=== PATIENT | female | born 1965 | race African-American/Black ===

== ENCOUNTER → 2016-12-05 | Outpatient (CLI) | payer OTHER ==
[~2016-12-05] MED LIST: ASPIR 8181 MG PO; D-20002000 UNIT PO; FISH OIL 1,001000 M2 PO; LIPITOR 20 MG T20 M1 PO; METFORMIN HCL500 MG PO; NITROSTAT0.4 M1 SL; NORVASC2.5 MG PO
--- NOTE | ~2016-12-05 | EKG ---
[place] [address] [facility] [place] [address] ELECTROCARDIOGRAM REPORT Name: BLANKENSHIPJEANNINE [id number] Admission: 12/05/16 Attend Phys: Natalie Gomez, Discharge: Date of : 63 Report #: [id number] THIS REPORT FOR: //name// [facility] Test Date: 2016-12-05 Test Time: 12:23:17 Pat Name: JEANNINE BLANKENSHIP Department: Room: Gender: F Sliding Joint Maker: Lisa HERRING : 1965 Requested By: Natalie Gomez Order Number: [id number] MD: sOmin Fraser Measurements Intervals [place] Rate: 79 P: 51 WV: 245 QRS: 19 QRSD: 86 T: 50 QT: 378 QTc: 434 Interpretive Statements Sinus rhythm Prolonged WV interval Consider left atrial enlargement Consider left ventricular hypertrophy Compared to ECG 05/27/2016 06:33:03 No significant changes Electronically Signed On 12-05-2016 14:16:36 CASHIER HOST/HOSTESS by Osmin Fraser [email or web address] <ELECTRONICALLY SIGNED> By: Osmin Fraser MD 12/05/16 1416 1223 1223 Osmin Fraser MD /DANII
== END ==
LOC: ULTRA 12:04 → CV 12:04
DX: Z01.818 Encounter for other preprocedural examination (principal)

== ENCOUNTER 2019-01-24 06:09 | Inpatient (IN) | payer OTHER ==
[~2019-01-24] VITALS: Ht 154.9 cm; Wt 73.0 kg
[~2019-01-24 06:09] MED LIST changes: +ATORVASTATIN CA40 MG PO; +LASIX 40 MG TAB40 M2 PO; +METFORMIN HCL500 M2 PO; +TOPROL XL25 MG PO; +VITAMIN D31000 UNI2 PO
[2019-01-24 09:22] LABS: ABSOLUTE NEUTROPHILS 3.2 thou/uL (1.4-8.2); EOSINOPHILS 0.7 % (0.0-3.0); HEMATOCRIT 40.2 % (37.0-47.0); HEMOGLOBIN 13.9 gm/dL (12.0-15.0); MCH 32.5 pg (26.0-34.0); MCHC 34.5 g/dL (28.0-37.0); MCV 94.3 fL (80.0-100.0); MONOCYTES 5.8 % (1.0-8.0); PLATELET COUNT 243 thou/uL (150-400); POLYS 47.5 % (36.0-66.0); RBC 4.26 mil/uL (4.20-5.00); RDW 14.7 % (10.5-14.5); WBC 6.7 thou/uL (4.0-11.0)
[2019-01-24 09:30] LABS: URINE BILIRUBIN NEGATIVE (Negative); URINE BLOOD NEGATIVE (Negative); URINE CLARITY CLEAR; URINE COLOR YELLOW; URINE GLUCOSE-RANDOM* NEGATIVE (Negative); URINE KETONES NEGATIVE (Negative); URINE LEUKOCYTES-REFLEX NEGATIVE (Negative); URINE NITRITE-REFLEX NEGATIVE (Negative); URINE PROTEIN (DIPSTICK) NEGATIVE (Negative); URINE UROBILINOGEN 0.2 E.U./dl (0.2-1.0)
[2019-01-24 09:33] LABS: APTT 31.5 Seconds (24.5-32.8); PROTIME 10.1 Seconds (9.3-11.4)
[2019-01-24 09:40] LABS: ALBUMIN 3.6 g/dL (3.4-5.0); CALCIUM 8.9 mg/dL (8.5-10.1); CREATININE 0.8 mg/dL (0.6-1.0); POTASSIUM 4.5 mmol/L (3.5-5.1); TOTAL BILIRUBIN 0.6 mg/dL (<0.1-1.0); TOTAL PROTEIN 8.1 g/dL (6.4-8.2)
--- NOTE | 2019-01-24 14:26 | EKG ---
[address] [place] [address] ELECTROCARDIOGRAM REPORT Name: PATTIEJEANNINE ARPIT Room #: PRE IN ..#: [id number] ������������������ Admission: ������������������ Attend Phys: Filiberto Abdalla MD Discharge: ������������������ Date of : 63 Report #: [id number] ����������������������������������������������������������������� [id number] THIS REPORT FOR: //name// [facility] Test Date: 2019-01-24 Test Time: 09:14:50 Pat Name: JEANNINE BLANKENSHIP Department: Room: 150 6 Gender: F Casino Gaming Inspector: sussy crane : 1965 Requested By: Filiberto Abdalla Order Number: [id number] MD: Osmin Fraser Measurements Intervals [place] Rate: 89 P: 51 VT: 236 QRS: 3 QRSD: 74 T: 65 QT: 375 QTc: 457 Interpretive Statements Sinus rhythm Prolonged VT interval LVH by voltage Compared to ECG 12/05/2016 12:23:17 No significant changes Electronically Signed On 01-24-2019 14:26:05 CDT by Osmin Fraser [email or web address] ��������������������������������������������� <ELECTRONICALLY SIGNED> ���������������������������������������� By: Osmin Fraser MD ��������������������������������������������� 01/24/19 1426 3 3 Osmin Fraser MD /DANII
[2019-01-24 23:09] LABS: GLYCOHEMOGLOBIN (HGB A1C) 7.2 % (4.8-5.6)
[2019-02-08] VITALS (7 sets, daily range): BP systolic 104–138; BP diastolic 44–69
[2019-02-08 14:27] LABS: HEMATOCRIT 21.7 % (37.0-47.0); MCH 32.4 pg (26.0-34.0); MCV 95.2 fL (80.0-100.0); RBC 2.28 mil/uL (4.20-5.00); RDW 14.5 % (10.5-14.5); WBC 10.3 thou/uL (4.0-11.0)
[2019-02-08 14:31] LABS: HEMOGLOBIN 7.4 gm/dL (12.0-15.0)
[2019-02-08 14:41] LABS: APTT 32.1 Seconds (24.5-32.8); FIBRINOGEN 230.2 mg/dL (210-360); PROTIME 16.8 Seconds (9.3-11.4)
[2019-02-08 14:42] LABS: INR 1.6
[2019-02-08 15:24] LABS: POC BE -1 mmol/L (-2.0 to +3.0); POC CA IONIZED 4.9 mg/dL (4.5-5.3); POC GLUCOSE 185 mg/dL (70-99); POC HCO3 23.9 mmol/L (22.0-26.0); POC HEMOGLOBIN 12.2 g/dL (12.0-15.0); POC POTASSIUM 4.9 mmol/L (3.5-5.1); POC SODIUM 138 mmol/L (136-145); POC pCO2 40.2 mmHg (35.0-45.0); POC pH 7.382 (7.360-7.450)
[2019-02-08 15:24] LABS: POC BE 2 mmol/L (-2.0 to +3.0); POC CA IONIZED 4.2 mg/dL (4.5-5.3); POC GLUCOSE 185 mg/dL (70-99); POC HCO3 26.5 mmol/L (22.0-26.0); POC HEMOGLOBIN 8.2 g/dL (12.0-15.0); POC POTASSIUM 4.6 mmol/L (3.5-5.1); POC SODIUM 141 mmol/L (136-145); POC pH 7.388 (7.360-7.450)
[2019-02-08 15:24] LABS: POC BE 0 mmol/L (-2.0 to +3.0); POC CA IONIZED 4.3 mg/dL (4.5-5.3); POC GLUCOSE 163 mg/dL (70-99); POC HCO3 25.8 mmol/L (22.0-26.0); POC HEMOGLOBIN 7.5 g/dL (12.0-15.0); POC POTASSIUM 4.9 mmol/L (3.5-5.1); POC SODIUM 141 mmol/L (136-145); POC pCO2 46.2 mmHg (35.0-45.0); POC pH 7.354 (7.360-7.450)
[2019-02-08 15:24] LABS: POC BE 2 mmol/L (-2.0 to +3.0); POC CA IONIZED 4.2 mg/dL (4.5-5.3); POC GLUCOSE 184 mg/dL (70-99); POC HCO3 26.7 mmol/L (22.0-26.0); POC HEMOGLOBIN 8.5 g/dL (12.0-15.0); POC POTASSIUM 4.3 mmol/L (3.5-5.1); POC SODIUM 140 mmol/L (136-145); POC pCO2 42.4 mmHg (35.0-45.0); POC pH 7.406 (7.360-7.450)
--- NOTE | 2019-02-08 15:30 | NUR ---
pt recieved from surgery sedated and intubated. acc by Jaxon and Dr. Abdalla. Pt placed on the monitor and all hemodynamic parameters wnl. Pt has dobutamie and insulin and Propofol infusing. The pacemaker is on at . Vent paced at this time. Sternal dressing intact and bra present. Jourdan dressing. MCT to Atrium, draining well. bai to DD, clear urine. 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 Will cont to monitor.
[2019-02-08 15:39] LABS: POC BE 2 mmol/L (-2.0 to +3.0); POC CA IONIZED 4.2 mg/dL (4.5-5.3); POC GLUCOSE 174 mg/dL (70-99); POC HCO3 25.4 mmol/L (22.0-26.0); POC HEMOGLOBIN 8.2 g/dL (12.0-15.0); POC POTASSIUM 4.5 mmol/L (3.5-5.1); POC SODIUM 140 mmol/L (136-145); POC pCO2 32.5 mmHg (35.0-45.0); POC pH 7.501 (7.360-7.450)
[2019-02-08 15:39] LABS: POC BE -2 mmol/L (-2.0 to +3.0); POC CA IONIZED 4.4 mg/dL (4.5-5.3); POC GLUCOSE 155 mg/dL (70-99); POC HEMOGLOBIN 8.8 g/dL (12.0-15.0); POC POTASSIUM 4.7 mmol/L (3.5-5.1); POC SODIUM 137 mmol/L (136-145); POC pCO2 46.9 mmHg (35.0-45.0); POC pH 7.318 (7.360-7.450)
[2019-02-08 15:39] LABS: POC BE -1 mmol/L (-2.0 to +3.0); POC CA IONIZED 4.3 mg/dL (4.5-5.3); POC GLUCOSE 178 mg/dL (70-99); POC HEMOGLOBIN 8.2 g/dL (12.0-15.0); POC POTASSIUM 4.9 mmol/L (3.5-5.1); POC SODIUM 142 mmol/L (136-145); POC pCO2 47.6 mmHg (35.0-45.0); POC pH 7.328 (7.360-7.450)
[2019-02-08 15:39] LABS: POC BE 1 mmol/L (-2.0 to +3.0); POC CA IONIZED 4.4 mg/dL (4.5-5.3); POC GLUCOSE 179 mg/dL (70-99); POC HCO3 28.1 mmol/L (22.0-26.0); POC HEMOGLOBIN 8.5 g/dL (12.0-15.0); POC POTASSIUM 4.2 mmol/L (3.5-5.1); POC SODIUM 141 mmol/L (136-145); POC pH 7.271 (7.360-7.450)
[2019-02-08 15:39] LABS: POC BE -3 mmol/L (-2.0 to +3.0); POC CA IONIZED 4.8 mg/dL (4.5-5.3); POC GLUCOSE 133 mg/dL (70-99); POC HCO3 22.1 mmol/L (22.0-26.0); POC HEMOGLOBIN 7.8 g/dL (12.0-15.0); POC POTASSIUM 4.3 mmol/L (3.5-5.1); POC SODIUM 141 mmol/L (136-145); POC pCO2 38.6 mmHg (35.0-45.0); POC pH 7.367 (7.360-7.450)
[2019-02-08 15:39] LABS: POC BE -4 mmol/L (-2.0 to +3.0); POC CA IONIZED 4.8 mg/dL (4.5-5.3); POC GLUCOSE 171 mg/dL (70-99); POC HCO3 21.2 mmol/L (22.0-26.0); POC HEMOGLOBIN 11.9 g/dL (12.0-15.0); POC POTASSIUM 4.3 mmol/L (3.5-5.1); POC SODIUM 138 mmol/L (136-145); POC pCO2 38.1 mmHg (35.0-45.0); POC pH 7.353 (7.360-7.450)
[2019-02-08 15:39] LABS: POC BE -5 mmol/L (-2.0 to +3.0); POC CA IONIZED 4.4 mg/dL (4.5-5.3); POC GLUCOSE 152 mg/dL (70-99); POC HCO3 21.6 mmol/L (22.0-26.0); POC HEMOGLOBIN 8.8 g/dL (12.0-15.0); POC POTASSIUM 4.6 mmol/L (3.5-5.1); POC SODIUM 139 mmol/L (136-145); POC pCO2 47.6 mmHg (35.0-45.0); POC pH 7.265 (7.360-7.450)
[2019-02-08 16:09] LABS: HEMATOCRIT 31.8 % (37.0-47.0); MCHC 33.5 g/dL (28.0-37.0); MCV 95.4 fL (80.0-100.0); RBC 3.33 mil/uL (4.20-5.00); RDW 14.6 % (10.5-14.5); WBC 12.8 thou/uL (4.0-11.0)
[2019-02-08 16:10] LABS: HEMOGLOBIN 10.7 gm/dL (12.0-15.0)
[2019-02-08 16:12] LABS: CALCIUM 7.9 mg/dL (8.5-10.1); CREATININE 0.7 mg/dL (0.6-1.0); MAGNESIUM 2.2 mg/dL (1.8-2.4)
[2019-02-08 16:23] LABS: APTT 38.3 Seconds (24.5-32.8); INR 1.2; PROTIME 12.6 Seconds (9.3-11.4)
--- NOTE | 2019-02-08 16:30 | NUR ---
Pt waking up some, the propofol is being decreased, plan is to start weaning as soon as she wakes up. Dr. Abdalla here to see how pt's doing adjustment made as needed. will cont to monitor.
[2019-02-08 16:42] LABS: BE(vivo) -7.5 mmol/L (-2 to +3); HCO3 18.2 mmol/L (22.0-26.0); PCO2 37.4 mmHg (35.0-45.0); PO2 62.7 mmHg (80.0-100.0); sO2 90.1 % (92.0-98.0)
[2019-02-08 16:43] LABS: pH 7.305 (7.360-7.450)
[2019-02-08 17:23] LABS: CHOLESTEROL 61 mg/dL (<200); HDL CHOLESTEROL 27 mg/dL (>40); LDL CHOLESTEROL 12 mg/dL (<100); TC:HDL 2.3 Ratio (Not establshd); TRIGLYCERIDE 114 mg/dL (<150); VLDL 23 mg/dL (<40)
--- NOTE | 2019-02-08 18:00 | NUR ---
Pt awake and informed on what the procedure is to get that ett out. Rt here to start. Dr Abdalla here to see.
[2019-02-08 18:03] LABS: BE(vivo) -6.2 mmol/L (-2 to +3); HCO3 18.5 mmol/L (22.0-26.0); PCO2 33.8 mmHg (35.0-45.0); pH 7.357 (7.360-7.450); sO2 94.3 % (92.0-98.0)
[2019-02-08 20:25] LABS: BE(vivo) -4.2 mmol/L (-2 to +3); HCO3 20.7 mmol/L (22.0-26.0); PCO2 37.5 mmHg (35.0-45.0); PO2 62.6 mmHg (80.0-100.0); sO2 91.3 % (92.0-98.0)
[2019-02-08 21:48] LABS: BE(vivo) -5.2 mmol/L (-2 to +3); HCO3 19.4 mmol/L (22.0-26.0); PCO2 34.8 mmHg (35.0-45.0); PO2 82.2 mmHg (80.0-100.0); pH 7.365 (7.360-7.450); sO2 95.9 % (92.0-98.0)
[2019-02-09 06:07] LABS: HEMATOCRIT 30.7 % (37.0-47.0); HEMOGLOBIN 10.2 gm/dL (12.0-15.0); MCH 31.7 pg (26.0-34.0); MCHC 33.2 g/dL (28.0-37.0); MCV 95.6 fL (80.0-100.0); RBC 3.21 mil/uL (4.20-5.00); RDW 14.8 % (10.5-14.5); WBC 11.6 thou/uL (4.0-11.0)
[2019-02-09 06:11] LABS: GLYCOHEMOGLOBIN (HGB A1C) 7.2 % (4.8-5.6)
[2019-02-09 06:23] LABS: CALCIUM 8.3 mg/dL (8.5-10.1); CREATININE 0.6 mg/dL (0.6-1.0); MAGNESIUM 2.1 mg/dL (1.8-2.4); POTASSIUM 4.2 mmol/L (3.5-5.1)
--- NOTE | 2019-02-09 06:39 | NUR ---
Pt extubated last pm and progressing well. Up to the chair this am without difficulty. PRN fentanyl and hydrocodones given for c/o chest "soreness" with desired effects achieved. VS stable and SpO2 adequate on current FiO2. Chest tube drainage minimal and urine output adequate for the shift. Am lab results noted, continue with POC.
--- NOTE | 2019-02-09 08:09 | EKG ---
[place] [address] [facility] [place] [address] ELECTROCARDIOGRAM REPORT Name: JEANNINE BLANKENSHIP Room #: 242-P ADM IN M.R.#: [id number] ������������������ Admission: 02/08/19 ������������������ Attend Phys: Filiberto Abdalla MD Discharge: ������������������ Date of : 63 Report #: [id number] ����������������������������������������������������������������� [id number] THIS REPORT FOR: //name// [facility] Test Date: 2019-02-09 Test Time: 07:04:41 Pat Name: JEANNINE BLANKENSHIP Department: Room: 242 P Gender: F Financial Services Internship: ABHI : 1965 Requested By: Mario Caballero Order Number: [id number] MD: Raphael Elliott Measurements Intervals [place] Rate: 70 P: 54 [place]: 203 QRS: 36 QRSD: 86 T: 73 QT: 348 QTc: 376 Interpretive Statements Atrial-ventricular dual-paced rhythm No further analysis attempted due to paced rhythm Compared to ECG 01/24/2019 09:14:50 pacing is now present Electronically Signed On 02-09-2019 8:09:27 CDT by Raphael Elliott [email or web address] ��������������������������������������������� <ELECTRONICALLY SIGNED> ���������������������������������������� By: Raphael Elliott MD, [facility] ��������������������������������������������� 02/09/19 0809 3 3 Raphael Elliott MD, [facility] /EPI
[2019-02-09 08:59] LABS: POC BE -5 mmol/L (-2.0 to +3.0); POC GLUCOSE 170 mg/dL (70-99); POC HCO3 20.5 mmol/L (22.0-26.0); POC HEMOGLOBIN 10.5 g/dL (12.0-15.0); POC POTASSIUM 4.7 mmol/L (3.5-5.1); POC SODIUM 143 mmol/L (136-145); POC pCO2 37.9 mmHg (35.0-45.0); POC pH 7.342 (7.360-7.450)
--- NOTE | 2019-02-09 10:48 | NUR ---
CM ASSESSMENT: CASE OPENED FOR DC PLANNING. CLINICAL INFO REVIEWED. PT IS POD #1 AVR. MET WITH PT AND INTRODUCED TO ROLE OF CM. PT LIVES IN HOUSE WITH DTR. 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 PT DRIVES. PT IS MEDICALLY DISABLED AND DOES NOT WORK. PCP IS ADAM NOGUERA. PT WILL BEGIIN TO WORK WITH PT/OT TODAY AND WILL FOLLOW TO ASSIST WITH COORDINATION OF DC NEEDS. LIKELY OME NO NEEDS.
--- NOTE | 2019-02-09 11:31 | NUR ---
ALERT AND ORIENTED THIS MORNING SITTING UP IN THE CHAIR. VITALS STABLE AND C/O PAIN, PRN MEDS ADMINISTERED. SWAN DC'D PER ORDER. TOLERATED DIET BUT POOR APPETITE. CHEST TUBE TO SUCTION WITH MINIMAL DRAINAGE. TEMP PACEMAKER ON AT 70. CARDENE GTT FOR HTN AND TITRATING DOWN BP TOLERATES.
--- NOTE | 2019-02-09 14:42 | NUR ---
CHEST TUBES DC'D THIS AFTERNOON, PATIENT TOLERATED WELL.
--- NOTE | 2019-02-09 14:49 | NUR ---
PACEMAKER PLACED ON BACKUP RATE ON BY DR. CHONG.
[2019-02-09 23:16] VITALS: BP 121/56
[2019-02-10] VITALS (18 sets, daily range): BP systolic 87–131; BP diastolic 41–63
[2019-02-10 04:20] LABS: INR 1.1; PROTIME 11.7 Seconds (9.3-11.4)
[2019-02-10 04:27] LABS: CALCIUM 9.2 mg/dL (8.5-10.1); CREATININE 0.7 mg/dL (0.6-1.0); POTASSIUM 4.5 mmol/L (3.5-5.1)
[2019-02-10 04:48] LABS: HEMATOCRIT 28.8 % (37.0-47.0); HEMOGLOBIN 9.7 gm/dL (12.0-15.0); MCH 32.4 pg (26.0-34.0); MCHC 33.7 g/dL (28.0-37.0); MCV 96.4 fL (80.0-100.0); RBC 2.98 mil/uL (4.20-5.00); RDW 15.2 % (10.5-14.5); WBC 11.8 thou/uL (4.0-11.0)
--- NOTE | 2019-02-10 05:17 | NUR ---
No events tonight. Pt remains stable. A-fib noted on monitor, rate control. Resting well in chair. Her pain had been adequated control. Epicardial pacer and Jourdan dressing are inplaced. continue to monitor any changes.
--- NOTE | 2019-02-10 18:36 | NUR ---
PT IS ALERT AND ORIENTED X 4. LUNGS ARE DIMINISHED. ON 4 LITERS 02 NASAL CANULA. REMAINS IN ICU AT HIS TIME. WALKED IN [address] TODAY AND USING HER INCENTIVE SPIROMETER. EATING A HEART HEALTHY DIET. GEMINI RUIZ GETS UP TO COMMODE TO USE THE BATHROOM WITH ASSISTANCE. RATES PAIN A TWO AND IS COMFORTABLE IN THE CHAIR. PAIN MEDS GIVEN NEEDED. CALL LIGHT WITHIN REACH IF NEEDS ASSISTANCE. WILL CONTINUE TO MONITOR AND ASSESS NO ISSUES AT THIS TIME. DRESSING DRY AND INTACT TO SERNUM.
[2019-02-11] VITALS (22 sets, daily range): BP systolic 103–129; BP diastolic 46–63
[2019-02-11 03:54] LABS: INR 1.1; PROTIME 11.7 Seconds (9.3-11.4)
--- NOTE | 2019-02-11 05:51 | NUR ---
PT AOX4. ON 3L NC. NO SOA WHILE AT REST. C/O PAIN, MEDICATED FOR PAIN RELIEF. AFEBRILE. PACEMAKER WIRES INPLACE AND PACEMAKER ON. VSS. UP WITH ONE ASSIST TO BATHROOM. STERNAL DRESSING C/D/I. PT DECIDED TO SLEEP IN THE CHAIR DURING THE NIGHT. NO COMPLAINS CURRENTLY. WILL CONTINUE TO MONITOR, PT SLOWLY PROGRESSING TOWARDS GOALS.
--- NOTE | 2019-02-11 08:13 | EKG ---
[place] [address] [facility] [place] [address] ELECTROCARDIOGRAM REPORT Name: JEANNINE BLANKENSHIP Room #: 242- ADM IN M.R.#: [id number] ������������������ Admission: 02/08/19 ������������������ Attend Phys: Filiberto Abdalla MD Discharge: ������������������ Date of : 63 Report #: [id number] ����������������������������������������������������������������� [id number] THIS REPORT FOR: //name// [facility] Test Date: 2019-02-09 Test Time: 14:16:14 Pat Name: JEANNINE BLANKENSHIP Department: Room: 242 Gender: F Vp Of Technology: Lisa HERRING : 1965 Requested By: Mario Caballero Order Number: [id number] MD: Raphael Elliott Measurements Intervals [place] Rate: 69 P: 0 CA: 73 QRS: 45 QRSD: 94 T: 15 QT: 420 QTc: 450 Interpretive Statements Sinus rhythm with heart block Nonspecific ST segment abnormality Compared to ECG 02/09/2019 07:04:41 AV sequential pacing is no longer present Electronically Signed On 02-11-2019 8:13:26 CDT by Raphael Elliott [email or web address] ��������������������������������������������� <ELECTRONICALLY SIGNED> ���������������������������������������� By: Raphael Elliott MD, [facility] ��������������������������������������������� 02/11/19 0813 1416 141 Raphael Elliott MD, [facility] /EPI
--- NOTE | 2019-02-11 08:17 | EKG ---
[place] [address] [facility] [place] [address] ELECTROCARDIOGRAM REPORT Name: JEANNINE BLANKENSHIP Room #: 242- ADM IN M.R.#: [id number] ������������������ Admission: 02/08/19 ������������������ Attend Phys: Filiberto Abdalla MD Discharge: ������������������ Date of : 63 Report #: [id number] ����������������������������������������������������������������� [id number] THIS REPORT FOR: //name// [facility] Test Date: 2019-02-10 Test Time: 09:49:03 Pat Name: JEANNINE BLANKENSHIP Department: Room: 242 Gender: F Information Assurance Analyst: Lisa HERRING : 1965 Requested By: Bret Newton Order Number: [id number] MD: Raphael Elliott Measurements Intervals [place] Rate: 70 P: SD: QRS: 29 QRSD: 84 T: 26 QT: 418 QTc: 452 Interpretive Statements Sinus rhythm with heart block Junctional escape rhythm with atrial prematurities Nonspecific ST segment abnormality Compared to ECG 02/09/2019 07:04:41 No significant change was found Electronically Signed On 02-11-2019 8:17:30 CDT by Raphael Elliott [email or web address] ��������������������������������������������� <ELECTRONICALLY SIGNED> ���������������������������������������� By: Raphael Elliott MD, [facility] ��������������������������������������������� 02/11/19 0817 0949 0949 Raphael Elliott MD, [facility] /EPI
--- NOTE | 2019-02-11 08:22 | EKG ---
[place] [address] [facility] [place] [address] ELECTROCARDIOGRAM REPORT Name: JEANNINE BLANKENSHIP Room #: 242- ADM IN M.R.#: [id number] ������������������ Admission: 02/08/19 ������������������ Attend Phys: Filiberto Abdalla MD Discharge: ������������������ Date of : 63 Report #: [id number] ����������������������������������������������������������������� [id number] THIS REPORT FOR: //name// [facility] Test Date: 2019-02-10 Test Time: 12:12:41 Pat Name: JEANNINE BLANKENSHIP Department: Room: 242 Gender: F Production Miner: Lisa HERRING : 1965 Requested By: Danisha Robles Order Number: [id number] MD: Raphael Elliott Measurements Intervals [place] Rate: 71 P: 0 [place]: QRS: 32 QRSD: 75 T: 22 QT: 429 QTc: 467 Interpretive Statements AV dissociation Atrial premature complexes Abnormal R-wave progression, early transition Nonspecific ST segment abnormality Compared to ECG 02/09/2019 07:04:41 No significant change was found Electronically Signed On 02-11-2019 8:22:12 CDT by Raphael Elliott [email or web address] ��������������������������������������������� <ELECTRONICALLY SIGNED> ���������������������������������������� By: Raphael Elliott MD, [facility] ��������������������������������������������� 02/11/19 0822 1212 121 Raphael Elliott MD, [facility] /EPI
--- NOTE | 2019-02-11 08:42 | EKG ---
[address] [address] ELECTROCARDIOGRAM REPORT Name: JEANNINE BLANKENSHIP Room #: 242- ADM IN M.R.#: [id number] ������������������ Admission: 02/08/19 ������������������ Attend Phys: Filiberto Abdalla MD Discharge: ������������������ Date of : 63 Report #: [id number] ����������������������������������������������������������������� [id number] THIS REPORT FOR: //name// [facility] Test Date: 2019-02-11 Test Time: 08:09:38 Pat Name: JEANNINE BLANKENSHIP Department: Room: 242 Gender: F Housecleaner Floor: ABHI : 1965 Requested By: Hayley Brown Order Number: [id number] MD: Raphael Elliott Measurements Intervals [place] Rate: 71 P: 0 IL: 122 QRS: 26 QRSD: 73 T: 44 QT: 429 QTc: 467 Interpretive Statements Sinus rhythm with A-V dissociation Atrial premature complexes Abnormal R-wave progression, early transition Borderline T abnormalities, anterior leads Compared to ECG 02/09/2019 07:04:41 no significant change was found Electronically Signed On 02-11-2019 8:42:11 CDT by Raphael Elliott [email or web address] ��������������������������������������������� <ELECTRONICALLY SIGNED> ���������������������������������������� By: Raphael Elliott MD, [facility] ��������������������������������������������� 02/11/19 0842 0809 Raphael Elliott MD, [facility] /EPI
--- NOTE | 2019-02-11 10:19 | NUR ---
FOLLOWING FOR DC PLANNING. CLINICAL INFO REVIEWED. PT WITH PACER ON RATE OF 50 R/T POST OP SSS, SB WITH JUNCTIONAL ESCAPE PER CARDIOLOGY-NO HEART BLOCK AND PPM NOT INDICATED AT THIS TIME. PLAN TO MONITOR HEART RHYTHM IN ICU OVER W/E. WALKING 120 FT NO DEVICE, O2 AT 3L NC TODAY. NO W/E DC PLANNED.
--- NOTE | 2019-02-11 12:08 | PATH ---
[facility] [address] [address] PATHOLOGY RPT PROCEDURE Name: ERASTO LOPEZ Room #: 242-P ADM IN M.R.#: [id number] ������������������ Admission: 02/08/19 ������������������ Date of : 63 Discharge: Report #: [id number] Path Case #: [id number] [facility] Accession Number: [id number] . 01 Material submitted: . PART A: AORTIC VALVE PART B: MITRAL VALVE ANTERIOR LEAFLET . 01 Clinical history: . Aortic insufficiency, mitral incompetence . 02 Diagnosis: A. 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 . B. 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 (IUV:bill; 02/10/2019) QMS/02/10/2019 . 02 Electronically signed: . Magali Brown MD, Pathologist NPI- [id number] . 01 Gross description: . A. The specimen is received in formalin, labeled "Erasto Lopez, aortic valve". Received are three segments of white-baron, glistening vascular tissue measuring 2.2 x 2.1 x 0.5 cm in aggregate dimensions. The specimen is submitted representatively in cassette A1. . B. The specimen is received in formalin, labeled "Erasto Lopez, mitral valve anterior leaflet". Received is a segment of pale baron vascular tissue with chordae tendinae present measuring 1.9 x 1.6 x 0.5 cm in greatest dimensions. The specimen is submitted representatively in cassette B1. (CAA; 02/09/2019) QAC/QAC . 02 Pathologist provided ICD-10: I35.1, I34.0 . 02 CPT . 808479, 412711 Specimen Comment: A courtesy copy of this report has been sent to Specimen Comment: [phone], . Specimen Comment: Report sent to / DR NOGUERA Performed at: [address] [place] [address] PATHOLOGY RPT PROCEDURE Name: ERASTO LOPEZ Room #: 242-P ADM IN M.R.#: [id number] ������������������ Admission: 02/08/19 ������������������ Date of : 63 Discharge: Report #: [id number] Path Case #: [id number] [facility] [address], [place], [place] [id number] MD Padilla Troy MD Phone: [phone] Performed at: [address] [id number] MD Magali Brown MD Phone: [phone]
--- NOTE | 2019-02-11 15:11 | O ---
[facility] [place] [address] OPERATIVE REPORT Name: JEANNINE BLANKENSHIP Room #: 242-P ADM IN M.R.#: [id number] Admission: 02/08/19 ������������������ Attend Phys: Filiberto Abdlala MD Discharge: ������������������ Date of : 63 Report #: [id number] THIS REPORT FOR: //name// CC: Cate Abdalla DATE OF SERVICE: 02/08/2019 PREOPERATIVE DIAGNOSES: Mitral and aortic valve incompetence. POSTOPERATIVE DIAGNOSES: Mitral and aortic valve incompetence. OPERATION: Mitral and aortic valve replacement with 25 and 19-mm Keena-Erickson bioprosthesis respectively. SURGEON: Filiberto Abdalla M.D. EMERGENCY SERVICES DISPATCHER: ENEDINA Lopez. ANESTHESIA: General. INDICATIONS: The patient is a 54-year-old seen in the office. The patient was evaluated at [facility] and found to have important aortic and mitral valve incompetence. 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 FINDINGS AND TECHNIQUE: After general anesthesia was established, exposure was obtained through median sternotomy. Pericardial well was made. Cannulation sutures were placed in the aorta and in the superior vena cava and in the inferior vena cavoatrial junction. Heparin was given. Aorta was cannulated and vena cava were cannulated. Cardioplegia needle was positioned in the aortic root. Retrograde cardioplegic catheter was placed in coronary sinus. Tapes were placed around the superior and inferior vena cava. Cardiopulmonary bypass was established. Antegrade then retrograde cardioplegia were given. Ice was poured into the pericardial well. Heart was stopped. During electromechanical arrest, the valves were replaced. Cardioplegia was given every 15 minutes through the retrograde cannula. In addition when it was possible, direct right coronary cannulation was done for supplemental cardioplegia. Initially, the aortotomy was made. The aortic valve leaflets were excised. Attention was then turned to the right atrium, which was opened. Superior septal approach to the mitral valve was accomplished. After opening the right [facility] [address] [place] [address] OPERATIVE REPORT Name: BLANKENSHIPJEANNINE MAZA ARPIT Room #: 242-P [facility] IN M.R.#: [id number] Admission: 02/08/19 ������������������ Attend Phys: Filiberto Abdalla MD Discharge: ������������������ Date of : 63 Report #: [id number] atrium, the fossa ovalis was divided and then an incision was carried down to the dome of the left atrium, the joint of these two other incisions. With good exposure of the mitral valve, we saw that it was quite thickened and as expected, the anterior leaflet was noncompliant and scarred. The entire posterior leaflet was saved and its chordal attachments were saved. Some of the anterior leaflet chordal attachments were saved. Interrupted pledgeted Ethibond sutures were placed sequentially around the annulus of the mitral valve. The anterior leaflet was excised in stages and it was used as a bucket handle to expose the annulus and in this way, we placed sutures. When all the sutures were placed, the sutures then were placed through the ring of a 25-mm Keena-Erickson bioprosthesis chosen for annular and the patient's size. The valve was lowered into place and the sutures were tied using the Cor-Knot device. The valve was inspected and seemed to seat nicely. The dome of the left atrium was closed in two layers. The fossa ovalis was closed with a running suture and the suture lines were connected and then, the right atrium itself was closed. Attention was then returned to the aortic valve. Interrupted Ethibond sutures were placed sequentially through the rampart annulus and then through the sewing ring of a 19-mm bioprosthesis chosen once again for annulus and the patient's size. Valve was lowered into place and sutures were secured with the Cor-Knot device. Once again, the valve seemed to sit nicely. The aortotomy was closed in two layers. The patient was rewarmed. Warm retrograde cardioplegia was given followed by warm continuous blood to the coronary sinus. When this infusion was complete, crossclamp was removed, de-airing maneuvers were performed. The suture lines were inspected and found to be satisfactory. As the patient warmed, nice cardiac activity resumed, chest tubes and pacing wires were placed. When the patient was warmed, she was weaned from cardiopulmonary bypass. Venous cannula was removed. Protamine was given. The aortic cannula was removed. When hemostasis was satisfactory, chest was irrigated with antibiotic solution [address] [address] OPERATIVE REPORT Name: JEANNINE BLANKENSHIP Room #: 242-P [facility] IN M.R.#: [id number] Admission: 02/08/19 ������������������ Attend Phys: Filiberto Abdalla MD Discharge: ������������������ Date of : 63 Report #: [id number] and closed in the usual fashion. The patient was taken to the Intensive Care Unit, having tolerated the procedure well. All counts were reported as correct. ��������������������������������������������� <ELECTRONICALLY SIGNED> ���������������������������������������� By: Filiberto Abdalla MD ��������������������������������������������� 02/11/19 1511 1921 1943 Filiberto Abdalla MD /nt
--- NOTE | 2019-02-11 18:26 | NUR ---
PT HAD A GOOD DAY. A/O X4, VERY PLEASANT ATTITUDE. UP TO CHAIR ALL DAY, AMBULATED IN HALLWAY X2 WITH PT AND RN. TOLERATED WELL. PAIN RATED 2-4/10 ALL DAY. PAIN PILL GIVEN THROUGHOUT DAY TO MANAGE PAIN. ENCOURAGED IS AND COUGHING AND DEEP BREATHING AND SPLINTING WITH HEART PILLOW.
[2019-02-12] VITALS (17 sets, daily range): BP systolic 93–140; BP diastolic 36–65
--- NOTE | 2019-02-12 04:01 | NUR ---
ASSUMED CARE OF PATIENT AT 1900. VSS, AFEBRILE. UP IN CHAIR, PREFERS TO SLEEP IN IT. STATES PAIN IS MINIMAL 2/10, IS NOT REQUIRING PAIN MEDS AT THIS TIME. ENCOURAGED TO COUGH AND DEEP BREATHE WELL USE INCENTIVE SPIROMETER. PROGRESSING TOWARDS POC GOALS. WILL CONTINUE TO MONITOR.
[2019-02-12 05:02] LABS: HEMATOCRIT 27.3 % (37.0-47.0); HEMOGLOBIN 9.3 gm/dL (12.0-15.0); MCH 32.1 pg (26.0-34.0); MCHC 33.8 g/dL (28.0-37.0); MCV 94.9 fL (80.0-100.0); RBC 2.88 mil/uL (4.20-5.00); RDW 14.6 % (10.5-14.5); WBC 8.8 thou/uL (4.0-11.0)
[2019-02-12 05:13] LABS: CALCIUM 8.8 mg/dL (8.5-10.1); CREATININE 0.6 mg/dL (0.6-1.0); POTASSIUM 3.6 mmol/L (3.5-5.1)
[2019-02-12 05:19] LABS: INR 1.5; PROTIME 16.1 Seconds (9.3-11.4)
--- NOTE | 2019-02-12 18:26 | NUR ---
PT TRANSFERED FROM ICU TO ROOM 211. REPORT GIVEN BY FRANKIE. PT ALERT AND ORIENTED. VSS. STERNAL ESA DRESSING C/D/I. HAS PACEMAKER ON . PT ORIENTED TO THE ROOM AND THE CALL SYSTEM. IN THE RECLINER AT THIS TIME. ON 2L N/C. CONCERNS AT THIS TIME WILL CONTINUE TO MONITOR.
[2019-02-13 04:46] VITALS: BP 100/56
[2019-02-13 05:04] LABS: ALBUMIN 2.5 g/dL (3.4-5.0); CALCIUM 9.2 mg/dL (8.5-10.1); CREATININE 0.7 mg/dL (0.6-1.0); PHOSPHORUS 4.1 mg/dL (2.5-4.9); POTASSIUM 3.9 mmol/L (3.5-5.1)
--- NOTE | 2019-02-13 06:01 | NUR ---
ASSUME CARE 1900. PT/VITALS STABLE. INTERMITTENT PAIN NOTED. GOOD TOLERANCE TO ACTIITY. ON 2LNC FOR COMFORT. POOR IS USE. INSTRUCTED ON HOW TO USE IS AND ENCOURAGED TO USE RELIGIOUSLY TO PREVENT PNA. PT AGREEABLE BUT NEEDS TO BE REMINDED FREQUENTLT. OCCASIONAL AFIB NOTED ON MONITOR. OPT MOSTLY SR. ASSESSMENT CHARTED. PROGRESSING WELL WITH POC. PLAN IS TO CONTINUE TO MONITOR POST-OP VITALS AND LABS, PREVENT INFECTION, PULL ESA VAC AD EXTERNAL PACER, AND GET PT WALKING FOR SPEEDY RECOVERY AND DISCHARGE. WILL CONTINUE TO MONITOR AND FOLLOW WITH POC
[2019-02-13 08:17] VITALS: BP 107/86
[2019-02-13 10:23] VITALS: BP 108/56
--- NOTE | 2019-02-13 11:42 | EKG ---
[address] [address] ELECTROCARDIOGRAM REPORT Name: JEANNINE BLANKENSHIP Room #: 211-P ADM IN M.R.#: [id number] ������������������ Admission: 02/08/19 ������������������ Attend Phys: Filiberto Abdalla MD Discharge: ������������������ Date of : 63 Report #: [id number] ����������������������������������������������������������������� [id number] THIS REPORT FOR: //name// [facility] Test Date: 2019-02-12 Test Time: 06:31:45 Pat Name: JEANNINE BLANKENSHIP Department: Room: 211 Gender: F Collar Pointer: EDVIN : 1965 Requested By: Mario Caballero Order Number: [id number] MD: Raphael Elliott Measurements Intervals [place] Rate: 71 P: -57 [place]: 152 QRS: 31 QRSD: 92 T: 78 QT: 463 QTc: 504 Interpretive Statements Ectopic atrial rhythm Abnormal T, consider ischemia, lateral leads Compared to ECG 02/11/2019 08:09:38 Ectopic atrial rhythm now present Atrial premature complex(es) no longer present Electronically Signed On 02-13-2019 11:42:35 CDT by Raphael Elliott [email or web address] ��������������������������������������������� <ELECTRONICALLY SIGNED> ���������������������������������������� By: Raphael Elliott MD, [facility] ��������������������������������������������� 02/13/19 1142 0 Raphael Elliott MD, [facility] /EPI
--- NOTE | 2019-02-13 11:57 | EKG ---
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1965 Requested By: Cam Carrera Order Number: [id number] MD: Raphael Elliott Measurements Intervals [place] Rate: 68 P: -49 [place]: 155 QRS: 45 QRSD: 75 T: 66 QT: 438 QTc: 466 Interpretive Statements Sinus or ectopic atrial rhythm Abnormal R-wave progression, early transition Nonspecific T wave abnormality Compared to ECG 02/11/2019 08:09:38 T wave abnormality is less pronounced Electronically Signed On 02-13-2019 11:57:34 CDT by Raphael Elliott [email or web address] ��������������������������������������������� <ELECTRONICALLY SIGNED> ���������������������������������������� By: Raphael Elliott MD, [facility] ��������������������������������������������� 02/13/19 1157 [id number] Raphael Elliott MD, [facility] /EPI
[2019-02-13 15:03] VITALS: BP 90/52
--- NOTE | 2019-02-13 17:50 | NUR ---
ASSESSMENT DOCUMENTED. MEDS GIVEN ORDERED. PRN PAIN MED GIVEN FOR STERNUM PAIN WITH PARTIAL RELIEF. UP IN THE CHAIR THIS AFTERNOON. ESA DRESSING AND WOUND VAC REMOVED BY DR. CORTEZ. STERNUM INCISION LEFT OPEN TO AIR. PACEMAKER STILL ON . CHECKED FREQUENTLY AND NEEDS MET. WILL CONTINUE TO MONITOR.
[2019-02-13 19:33] VITALS: BP 128/62
[2019-02-14 04:35] VITALS: BP 92/50
--- NOTE | 2019-02-14 05:19 | NUR ---
ASSUME CARE 1900. PT/VITALS STABLE. TOLREATES ACTIVITY WELL. UP STB ASSIST. AFIB/SR NOTED ON MONITOR WITH CONTROLLED HR IN 70s. INTERMITTENT INCISIONAL PAIN AT 3/10. ADDEQUATE REST NOTED. ASSESSMETN CHARTED. PROGRESSING WELL WITH POC. PLAN IS TO D/C EXTERNAL PACER TODAY. PROGRESSING WELL POST OP. WILL CONITNUE TO MONITOR AND FOLLOW WITH POC
[2019-02-14 06:14] LABS: INR 1.8; PROTIME 18.3 Seconds (9.3-11.4)
[2019-02-14 08:00] VITALS: BP 103/61
--- NOTE | 2019-02-14 08:45 | EKG ---
[place] [address] [facility] [place] [address] ELECTROCARDIOGRAM REPORT Name: JEANNINE BLANKENSHIP Room #: 211-P ADM IN M.R.#: [id number] ������������������ Admission: 02/08/19 ������������������ Attend Phys: Filiberto Abdalla MD Discharge: ������������������ Date of : 63 Report #: [id number] ����������������������������������������������������������������� [id number] THIS REPORT FOR: //name// [facility] Test Date: 2019-02-14 Test Time: 07:10:52 Pat Name: JEANNINE BLANKENSHIP Department: Room: 211 P Gender: F 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1965 Requested By: Cam Carrera Order Number: [id number] MD: Raphael Elliott Measurements Intervals [place] Rate: 75 P: -62 [place]: 168 QRS: 17 QRSD: 95 T: 116 QT: 380 QTc: 425 Interpretive Statements Ectopic atrial rhythm Abnormal T, consider ischemia, lateral leads Compared to ECG 02/13/2019 08:07:48 no significant change was found Electronically Signed On 02-14-2019 8:45:23 CDT by Raphael Elliott [email or web address] ��������������������������������������������� <ELECTRONICALLY SIGNED> ���������������������������������������� By: Raphael Elliott MD, [facility] ��������������������������������������������� 02/14/19 0845 0710 9 Raphael Elliott MD, [facility] /EPI
[2019-02-14 12:00] VITALS: BP 109/65
[2019-02-14 16:00] VITALS: BP 96/58
[2019-02-14 19:18] VITALS: BP 113/60
--- NOTE | 2019-02-15 02:08 | NUR ---
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
[2019-02-15 05:00] VITALS: BP 112/63
[2019-02-15 08:29] VITALS: BP 127/64
--- NOTE | 2019-02-15 08:34 | EKG ---
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 : 1965 Requested By: Cam Carrera Order Number: [id number] MD: Raphael Elliott Measurements Intervals [place] Rate: 83 P: -66 [place]: 173 QRS: 5 QRSD: 110 T: 136 QT: 367 QTc: 432 Interpretive Statements Ectopic atrial rhythm LVH with secondary repolarization abnormality Baseline wander in lead(s) V5 Compared to ECG 02/14/2019 07:10:52 No significant change was found Electronically Signed On 02-15-2019 8:34:17 CDT by Raphael Elliott [email or web address] ��������������������������������������������� <ELECTRONICALLY SIGNED> ���������������������������������������� By: Raphael Elliott MD, [facility] ��������������������������������������������� 02/15/19 0834 2 2 Raphael Elliott MD, [facility] /EPI
[2019-02-15 09:18] LABS: PROTIME 20.7 Seconds (9.3-11.4)
[2019-02-15 12:12] VITALS: BP 109/50
[2019-02-15] MEDS ORDERED: ACETAMINOPHEN325 M1 PO (12:52)
[2019-02-15] MEDS ORDERED: COLACE 100 MG100 MG PO (12:52)
[2019-02-15] MEDS ORDERED: FERREX 150 PLU1 EAC1 PO (12:52)
[2019-02-15] MEDS ORDERED: HYDROCODON-ACE1 EAC7 PO (12:52)
[2019-02-15] MEDS ORDERED: ALBUTEROL2.5 MG/31 INH (12:52)
[2019-02-15] MEDS ORDERED: MELATONIN1 MG PO (12:52)
--- NOTE | 2019-02-15 13:28 | NUR ---
PATIENT TO DC HOME TODAY WITH HH CARE. VERIFIED ADDRESS AND PCP. NO PREFERENCE FOR HH [facility]Y REFERRAL TO [facility]. 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
--- NOTE | 2019-02-15 13:30 | NUR ---
Nutrition: Pt s/p valve replacement. Seen for LOS. Reports appetite has been okay with 50% intake. Current wt 161 lbs, wt has fluctuated between 161-171 since admission. UBW within 160's. BG ranging from 103-240, A1c 7.2. Offered carb controlled diet education, pt denied. Being d/c soon. Low nutrition risk.
[2019-02-15 13:52] VITALS: BP 109/50
--- NOTE | 2019-02-15 13:53 | NUR ---
FAXED REFERRAL TO [facility] SPOKE WITH DAO IN ADM. SHE RECEIVED REFERRAL AND WILL REVIEW. PT. DISCHARGING TODAY. DCP TO FOLLOW.
[2019-02-15 15:19] VITALS: BP 109/50
--- NOTE | 2019-02-15 15:21 | NUR ---
FAXED REFERRAL TO [facility] SPOKE WITH TOBIAS IN ADM. SHE RECEIVED AND WILL BE ABLE TO ACCEPT PT. SHE WILL NOTIFY PT. OF TIME OF VISITS.
[2019-02-15] MEDS ORDERED: COUMADIN 5 MG TA5 M1 PO (15:22)
[2019-02-15 16:07] VITALS: BP 118/57
== END 2019-02-15 16:23 | disposition home health service (06) | DRG 219 ==
LOC: TBA 06:09 → PRE 06:09 → ULTRA 13:30 → EDSTATUS 14:44 → ICU 02-08 05:36 → TBA 02-08 05:36 → PRE 02-08 08:47 → ICU 02-08 16:02 → PRE 02-08 16:44 → 2N 02-12 15:30 → ENTRNSPT 02-15 15:56 → 2N 02-15 16:23
PROVIDERS: Physician Assistant; Surgery Vascular Surgery; ADMIT Hospitalist
PROC: 02RF08Z Replacement of Aortic Valve with Zooplastic Tissue, Open Approach (ICD-10-PCS; principal; 2019-02-08)
PROC: 03HY32Z Insertion of Monitoring Device into Upper Artery, Percutaneous Approach (ICD-10-PCS; principal; 2019-02-08)
PROC: 02RG08Z Replacement of Mitral Valve with Zooplastic Tissue, Open Approach (ICD-10-PCS; principal; 2019-02-08)
PROC: 30233K1 Transfusion of Nonautologous Frozen Plasma into Peripheral Vein, Percutaneous Approach (ICD-10-PCS; principal; 2019-02-08)
PROC: 4A133B1 Monitoring of Arterial Pressure, Peripheral, Percutaneous Approach (ICD-10-PCS; principal; 2019-02-08)
PROC: 4A133J1 Monitoring of Arterial Pulse, Peripheral, Percutaneous Approach (ICD-10-PCS; principal; 2019-02-08)
PROC: 02HQ33Z Insertion of Infusion Device into Right Pulmonary Artery, Percutaneous Approach (ICD-10-PCS; principal; 2019-02-08)
PROC: 5A1221Z Performance of Cardiac Output, Continuous (ICD-10-PCS; principal; 2019-02-08)
DX: I08.0 Rheumatic disorders of both mitral and aortic valves (principal); E43 Unspecified severe protein-calorie malnutrition; I42.9 Cardiomyopathy, unspecified; I45.89 Other specified conduction disorders; E78.5 Hyperlipidemia, unspecified; I10 Essential (primary) hypertension; I25.10 Atherosclerotic heart disease of native coronary artery without angina pectoris; E11.9 Type 2 diabetes mellitus without complications; F17.210 Nicotine dependence, cigarettes, uncomplicated; I48.91 Unspecified atrial fibrillation; I49.5 Sick sinus syndrome; I49.9 Cardiac arrhythmia, unspecified; I95.9 Hypotension, unspecified; Z95.5 Presence of coronary angioplasty implant and graft; I25.2 Old myocardial infarction; Z79.82 Long term (current) use of aspirin; Z79.899 Other long term (current) drug therapy; Z82.49 Family history of ischemic heart disease and other diseases of the circulatory system; Z71.6 Tobacco abuse counseling; Z68.30 Body mass index [BMI] 30.0-30.9, adult
CPT/HCPCS: 10078; 10081; 47000; 47001; 47002; 47297; 47335; 48888; 50010; 50409; 50456; 50497; 51932; 52131; 52259; 52314; 53327; 53358; 54118; 55415; 55501; 56524; 56525; 56526; 56527; 56528; 56531; 56534; 56639; 57080; 57082; 57093; 57115; 57217; 57222; 62110; 62950; 65003; 65020; 65047; 65090; 65120; 65135; 83006

== ENCOUNTER → 2019-03-17 | Outpatient (CLI) | payer OTHER ==
[~2019-03-17] MED LIST changes: +ACETAMINOPHEN325 M1 PO; +ALBUTEROL2.5 MG/31 INH; +COLACE 100 MG100 MG PO; +COUMADIN 5 MG TA5 M1 PO; +FERREX 150 PLU1 EAC1 PO; +HYDROCODON-ACE1 EAC7 PO; +MELATONIN1 MG PO
== END ==
LOC: HYPER 06:59
DX: T81.31XA Disruption of external operation (surgical) wound, not elsewhere classified, initial encounter (principal); E11.9 Type 2 diabetes mellitus without complications; E78.00 Pure hypercholesterolemia, unspecified; E78.5 Hyperlipidemia, unspecified; I35.9 Nonrheumatic aortic valve disorder, unspecified; I25.10 Atherosclerotic heart disease of native coronary artery without angina pectoris; Z79.82 Long term (current) use of aspirin; Z79.84 Long term (current) use of oral hypoglycemic drugs; Z79.01 Long term (current) use of anticoagulants; Z87.891 Personal history of nicotine dependence; Z95.4 Presence of other heart-valve replacement; Z90.49 Acquired absence of other specified parts of digestive tract; Y92.89 Other specified places as the place of occurrence of the external cause; Y83.8 Other surgical procedures as the cause of abnormal reaction of the patient, or of later complication, without mention of misadventure at the time of the procedure

== ENCOUNTER → 2019-04-06 | Outpatient (CLI) | payer OTHER | LOC: HYPER | DX: T81.31XD Disruption of external operation (surgical) wound, not elsewhere classified, subsequent encounter (principal); E11.9 Type 2 diabetes mellitus without complications; E78.5 Hyperlipidemia, unspecified; E78.00 Pure hypercholesterolemia, unspecified; I35.9 Nonrheumatic aortic valve disorder, unspecified; I25.10 Atherosclerotic heart disease of native coronary artery without angina pectoris; Z86.73 Personal history of transient ischemic attack (TIA), and cerebral infarction without residual deficits; Z79.84 Long term (current) use of oral hypoglycemic drugs; Z79.01 Long term (current) use of anticoagulants; Z87.891 Personal history of nicotine dependence; Z95.4 Presence of other heart-valve replacement; Z95.818 Presence of other cardiac implants and grafts; Y83.8 Other surgical procedures as the cause of abnormal reaction of the patient, or of later complication, without mention of misadventure at the time of the procedure ==

== ENCOUNTER → 2019-04-29 | Outpatient (CLI) | payer OTHER | LOC: HYPER 08:09 | DX: T81.31XD Disruption of external operation (surgical) wound, not elsewhere classified, subsequent encounter (principal); I35.9 Nonrheumatic aortic valve disorder, unspecified; E78.00 Pure hypercholesterolemia, unspecified; I25.10 Atherosclerotic heart disease of native coronary artery without angina pectoris; E78.5 Hyperlipidemia, unspecified; R04.0 Epistaxis; F19.90 Other psychoactive substance use, unspecified, uncomplicated; Z95.818 Presence of other cardiac implants and grafts; Z79.84 Long term (current) use of oral hypoglycemic drugs; Z79.01 Long term (current) use of anticoagulants; Z87.891 Personal history of nicotine dependence; Y83.8 Other surgical procedures as the cause of abnormal reaction of the patient, or of later complication, without mention of misadventure at the time of the procedure ==

== ENCOUNTER → 2019-11-29 | Outpatient (CLI) | payer OTHER | LOC: SJCVC 10:11 | DX: I25.10 Atherosclerotic heart disease of native coronary artery without angina pectoris (principal); E78.00 Pure hypercholesterolemia, unspecified; I38 Endocarditis, valve unspecified; I44.1 Atrioventricular block, second degree; R00.0 Tachycardia, unspecified; R94.31 Abnormal electrocardiogram [ECG] [EKG]; Z98.890 Other specified postprocedural states; Z95.2 Presence of prosthetic heart valve ==

== ENCOUNTER → 2020-01-12 | Outpatient (CLI) | payer OTHER | LOC: SJCVCIMAG 10:05 | DX: R00.0 Tachycardia, unspecified (principal); I25.10 Atherosclerotic heart disease of native coronary artery without angina pectoris; E78.00 Pure hypercholesterolemia, unspecified; I10 Essential (primary) hypertension; E11.9 Type 2 diabetes mellitus without complications; E78.5 Hyperlipidemia, unspecified; Z79.82 Long term (current) use of aspirin; Z79.84 Long term (current) use of oral hypoglycemic drugs; Z79.899 Other long term (current) drug therapy; Z82.49 Family history of ischemic heart disease and other diseases of the circulatory system; Z87.891 Personal history of nicotine dependence; Z98.61 Coronary angioplasty status ==

== ENCOUNTER → 2020-06-11 | Outpatient (CLI) | payer OTHER | LOC: SJCVC 10:05 | PROVIDERS: ATTEND Internal Medicine Cardiovascular Disease | DX: E78.00 Pure hypercholesterolemia, unspecified (principal) ==

== ENCOUNTER → 2020-06-29 | Outpatient (CLI) | payer OTHER | LOC: CAT 12:36 | PROVIDERS: ATTEND Internal Medicine Hematology & Oncology | DX: C85.19 Unspecified B-cell lymphoma, extranodal and solid organ sites (principal); R59.1 Generalized enlarged lymph nodes ==

== ENCOUNTER → 2020-07-19 | Outpatient (CLI) | payer OTHER | LOC: SJCVC 13:16 | PROVIDERS: ATTEND Internal Medicine Cardiovascular Disease | DX: I44.0 Atrioventricular block, first degree (principal); R94.31 Abnormal electrocardiogram [ECG] [EKG]; I25.10 Atherosclerotic heart disease of native coronary artery without angina pectoris; I10 Essential (primary) hypertension; I25.2 Old myocardial infarction; E78.00 Pure hypercholesterolemia, unspecified; F17.210 Nicotine dependence, cigarettes, uncomplicated; Z98.890 Other specified postprocedural states; Z79.82 Long term (current) use of aspirin; Z79.899 Other long term (current) drug therapy; Z79.84 Long term (current) use of oral hypoglycemic drugs; Z82.49 Family history of ischemic heart disease and other diseases of the circulatory system ==

== ENCOUNTER → 2021-01-21 | Outpatient (CLI) | payer OTHER | LOC: SJCVCIMAG 07:58 | PROVIDERS: ATTEND Internal Medicine Cardiovascular Disease | DX: I35.1 Nonrheumatic aortic (valve) insufficiency (principal); R94.31 Abnormal electrocardiogram [ECG] [EKG]; I44.0 Atrioventricular block, first degree; I25.10 Atherosclerotic heart disease of native coronary artery without angina pectoris; I10 Essential (primary) hypertension; E78.00 Pure hypercholesterolemia, unspecified; E11.9 Type 2 diabetes mellitus without complications; E78.5 Hyperlipidemia, unspecified; F17.209 Nicotine dependence, unspecified, with unspecified nicotine-induced disorders; Z95.2 Presence of prosthetic heart valve; Z98.890 Other specified postprocedural states; Z79.82 Long term (current) use of aspirin; Z79.84 Long term (current) use of oral hypoglycemic drugs; Z79.899 Other long term (current) drug therapy; Z86.73 Personal history of transient ischemic attack (TIA), and cerebral infarction without residual deficits; Z82.49 Family history of ischemic heart disease and other diseases of the circulatory system ==

== ENCOUNTER → 2021-07-24 | Outpatient (CLI) | payer OTHER | LOC: SJCVC 13:08 | PROVIDERS: ATTEND Internal Medicine Cardiovascular Disease | DX: R94.31 Abnormal electrocardiogram [ECG] [EKG] (principal); I44.0 Atrioventricular block, first degree; I25.10 Atherosclerotic heart disease of native coronary artery without angina pectoris; I10 Essential (primary) hypertension; E78.00 Pure hypercholesterolemia, unspecified; R60.9 Edema, unspecified; I44.1 Atrioventricular block, second degree; Z72.89 Other problems related to lifestyle; F17.209 Nicotine dependence, unspecified, with unspecified nicotine-induced disorders; F17.200 Nicotine dependence, unspecified, uncomplicated; Z98.890 Other specified postprocedural states; Z79.82 Long term (current) use of aspirin; Z79.84 Long term (current) use of oral hypoglycemic drugs ==